=== PATIENT | female | born 1980 | race African-American/Black ===

== ENCOUNTER 2019-10-29 13:49 | Emergency (ER) | payer SELFPAY | END 2019-10-29 15:10 | disposition home or self-care (01) | LOC: NAV ERS 13:49 | DX: R10.9 Unspecified abdominal pain (principal); G89.29 Other chronic pain; E11.9 Type 2 diabetes mellitus without complications; E78.5 Hyperlipidemia, unspecified; E78.00 Pure hypercholesterolemia, unspecified; F17.220 Nicotine dependence, chewing tobacco, uncomplicated; Z79.84 Long term (current) use of oral hypoglycemic drugs; Z79.899 Other long term (current) drug therapy | CPT/HCPCS: 99281 ==

== ENCOUNTER 2022-07-13 18:32 | Emergency (ER) | payer SELFPAY ==
[2022-07-13] MEDS ORDERED: Ondansetron ODT 4 MG TAB ONE (18:57)
[2022-07-13] MEDS ORDERED: Ibuprofen 800 MG TAB ONE (18:57)
== END 2022-07-13 20:05 | disposition home or self-care (01) ==
LOC: NAV ERS 18:32
DX: B34.9 Viral infection, unspecified (principal); E11.9 Type 2 diabetes mellitus without complications; E78.00 Pure hypercholesterolemia, unspecified; F17.220 Nicotine dependence, chewing tobacco, uncomplicated; Z79.84 Long term (current) use of oral hypoglycemic drugs; Z79.899 Other long term (current) drug therapy
CPT/HCPCS: 36416; 87804; 99284; Q0162

== ENCOUNTER 2022-09-03 16:46 | Emergency (ER) | payer SELFPAY ==
[2022-09-03] MEDS ORDERED: Insulin Regular 300 UNITS/3 ML VIAL ONE (17:06)
[2022-09-03] MEDS ORDERED: Cephalexin 250 MG CAP ONE (17:10)
== END 2022-09-03 16:53 | disposition home or self-care (01) ==
LOC: NAV ERS 16:46
DX: T63.441A Toxic effect of venom of bees, accidental (unintentional), initial encounter (principal); E11.65 Type 2 diabetes mellitus with hyperglycemia; E78.00 Pure hypercholesterolemia, unspecified; F17.220 Nicotine dependence, chewing tobacco, uncomplicated; Z79.84 Long term (current) use of oral hypoglycemic drugs; Z79.899 Other long term (current) drug therapy
CPT/HCPCS: 36416; 99283; J1815

== ENCOUNTER 2022-09-20 08:19 | Emergency (ER) | payer BC, MEDICAID, SELFPAY | END 2022-09-20 09:36 | disposition home or self-care (01) | LOC: NAV ERS 08:19 | DX: H65.91 Unspecified nonsuppurative otitis media, right ear (principal); J02.9 Acute pharyngitis, unspecified; I10 Essential (primary) hypertension; Z20.822 Contact with and (suspected) exposure to COVID-19; E11.9 Type 2 diabetes mellitus without complications; E78.00 Pure hypercholesterolemia, unspecified; F17.220 Nicotine dependence, chewing tobacco, uncomplicated | CPT/HCPCS: 87081; 87430; 99283; U0003; U0005 ==

== ENCOUNTER 2022-11-26 16:51 | Emergency (ER) | payer BC, SELFPAY ==
[2022-11-26] MEDS ORDERED: Dexamethasone 4 mg/ml Vial ONE (17:23)
[2022-11-26] MEDS ORDERED: Lidocaine Viscous Sol 2% 15 ml UD Cup ONE (17:23)
[2022-11-26] MEDS ORDERED: Ketorolac Tromethamine 60 MG/2 ML VIAL ONE (17:23)
[2022-11-27 00:38] LABS: MONO NEGATIVE CONTROL ZONE White (Negative) (White); MONO POSITIVE CONTROL Pink Line (Positive) (PINK/RED); Mononucleosis NEGATIVE (NEGATIVE)
== END 2022-11-26 19:34 | disposition home or self-care (01) ==
LOC: NAV ERS 16:51
DX: J02.9 Acute pharyngitis, unspecified (principal); E11.9 Type 2 diabetes mellitus without complications; E78.00 Pure hypercholesterolemia, unspecified; F17.220 Nicotine dependence, chewing tobacco, uncomplicated; Z20.822 Contact with and (suspected) exposure to COVID-19
CPT/HCPCS: 36415; 86308; 87081; 87430; 87804; 96372; 99283; J1100; J1885; U0003; U0005

== ENCOUNTER 2023-02-26 14:13 | Emergency (ER) | payer SELFPAY ==
[2023-02-26] MEDS ORDERED: Lidocaine Viscous Sol 2% 15 ml UD Cup ONE (14:51)
[2023-02-26] MEDS ORDERED: Mag-Al Plus 1200 MG/1200 MG/120 MG/30 ML UDCUP ONE (14:51)
[2023-02-26] MEDS ORDERED: Sodium Chloride 0.9% 1,000 ML ONE (14:51)
[2023-02-26] MEDS ORDERED: Ondansetron PF 4 MG/2 ML Vial ONE (14:51)
[2023-02-26 15:30] LABS: #Basophils 0.1 thou/uL (0.0-0.2); #Eosinphils 0.3 thou/uL (0.0-0.7); #Lymphocytes 1.2 thou/uL (1.20-3.40); #Monocytes 0.5 thou/uL (0.11-0.59); %Basophils 1.3 % (0.0-1.0); %Eosinophils 5.5 % (0.0-10.0); %Lymphocytes 24.3 % (21.0-51.0); %Monocytes 9.7 % (0.0-10.0); %Neutrophils 59.2 % (42.0-75.0); Hemoglobin 10.9 g/dL (12.0-16.0); Mean Corpuscular HGB CONC 30.3 g/dL (32.0-36.0); Mean Corpuscular Hemoglobin 24.3 pg (27.0-31.0); Mean Corpuscular Volume 80.1 fl (78.0-98.0); Mean Platelet Volume 7.7 fL (7.4-10.4); Platelet Count 267 10x3/uL (130-400); RBC Distribution Width 14.6 % (11.5-14.5); Red Blood Cell (RBC) Count 4.47 mill/uL (4.20-5.40)
[2023-02-26 15:34] LABS: ALT (SGPT) 11 U/L (8-55); AST (SGOT) 13 U/L (5-34); Albumin 3.2 g/dL (3.5-5.0); Alkaline Phosphatase 97 U/L (40-110); Anion Gap 12 mmol/L (10-20); BUN (Urea Nitrogen) 15 mg/dL (7.0-18.7); Bilirubin, Total 0.2 mg/dL (0.2-1.2); Calc. Creatinine Clearance 0 mL/min (70-130); Calcium 9.7 mg/dL (7.8-10.44); Carbon Dioxide 23 mmol/L (22-29); Chloride 107 mmol/L (98-107); Estimated GFR 58; Globulin 4.3 g/dL (2.4-3.5); Glucose 162 mg/dL (70-105); Lipase 28 U/L (8-78); Potassium 4.4 mmol/L (3.5-5.1); Protein, Total 7.5 g/dL (6.0-8.3); Sodium 138 mmol/L (136-145)
[2023-02-26 16:10] LABS: Bilirubin Negative (Negative); Blood, Urine Moderate (Negative); Clarity Clear (Clear); Glucose, Urine (Dipstick) 500 mg/dL (Negative); Ketone, Urine Negative (Negative); Leukocyte Negative (Negative); Nitrite Negative (Negative); Protein, Urine (Dipstick) Trace mg/dL (Neg-Trace); Specific Gravity, Urine 1.025 (1.005-1.030)
[2023-02-26 16:21] LABS: Bacteria/HPF 2+ HPF (None Seen); CAUTI Indications for Culture < 2yrs of age; RBC/HPF 0-3 HPF (0-3); Squamous Epithelial 0-3 HPF (0-3); Urine Culture Reflex Yes Yes; WBC/HPF 0-3 HPF (0-3)
[2023-02-26] MEDS ORDERED: Promethazine HCl 25 MG/ML VIAL ONE (16:34)
[2023-02-26] MEDS ORDERED: Sodium Chloride 0.9% 100 ML ONE (16:34)
== END 2023-02-26 17:26 | disposition home or self-care (01) ==
LOC: NAV ERS 14:13
DX: R11.2 Nausea with vomiting, unspecified (principal); E11.9 Type 2 diabetes mellitus without complications; Z79.84 Long term (current) use of oral hypoglycemic drugs
CPT/HCPCS: 80053; 81001; 83690; 84484; 85025; 87077; 87086; 93005; 94760; 96361; 96365; 96375; J2405; J2550; J7050

== ENCOUNTER 2023-09-29 17:08 | Emergency (ER) | payer OTHER ==
[2023-09-29] MEDS ORDERED: Acetaminophen 500 MG TAB ONE (17:35)
== END 2023-09-29 17:53 | disposition home or self-care (01) ==
LOC: NAV ERS 17:08
DX: H60.502 Unspecified acute noninfective otitis externa, left ear (principal); E11.9 Type 2 diabetes mellitus without complications; E78.5 Hyperlipidemia, unspecified; F17.220 Nicotine dependence, chewing tobacco, uncomplicated; Z79.84 Long term (current) use of oral hypoglycemic drugs; Z79.899 Other long term (current) drug therapy
CPT/HCPCS: 99282

== ENCOUNTER 2024-02-11 14:55 | Emergency (ER) | payer OTHER | END 2024-02-11 15:30 | disposition home or self-care (01) | LOC: NAV ERS 14:55 | DX: S30.861A Insect bite (nonvenomous) of abdominal wall, initial encounter (principal); S10.96XA Insect bite of unspecified part of neck, initial encounter; S80.861A Insect bite (nonvenomous), right lower leg, initial encounter; L29.9 Pruritus, unspecified; R00.0 Tachycardia, unspecified; E11.9 Type 2 diabetes mellitus without complications; F17.220 Nicotine dependence, chewing tobacco, uncomplicated; E78.5 Hyperlipidemia, unspecified; Z79.84 Long term (current) use of oral hypoglycemic drugs; Z79.899 Other long term (current) drug therapy; W57.XXXA Bitten or stung by nonvenomous insect and other nonvenomous arthropods, initial encounter | CPT/HCPCS: 99282 ==

== ENCOUNTER 2024-03-25 18:40 | Emergency (ER) | payer OTHER ==
[2024-03-25] MEDS ORDERED: Naproxen 500 MG TAB ONE (19:05)
== END 2024-03-25 19:19 | disposition home or self-care (01) ==
LOC: NAV ERS 18:40
DX: S90.121A Contusion of right lesser toe(s) without damage to nail, initial encounter (principal); E11.9 Type 2 diabetes mellitus without complications; F17.220 Nicotine dependence, chewing tobacco, uncomplicated; E78.5 Hyperlipidemia, unspecified; Z79.899 Other long term (current) drug therapy; Z79.84 Long term (current) use of oral hypoglycemic drugs; W50.0XXA Accidental hit or strike by another person, initial encounter

== ENCOUNTER 2024-08-14 23:02 | Emergency (ER) | payer OTHER | END 2024-08-15 00:15 | disposition home or self-care (01) | LOC: NAV ERS 23:02 | DX: M25.562 Pain in left knee (principal); M25.561 Pain in right knee; E11.9 Type 2 diabetes mellitus without complications; F17.200 Nicotine dependence, unspecified, uncomplicated; Y92.129 Unspecified place in nursing home as the place of occurrence of the external cause | CPT/HCPCS: 99283 ==

== ENCOUNTER 2025-04-12 14:28 | Emergency (ER) | payer OTHER ==
[2025-04-12 15:02] LABS: #Basophils 0.2 thou/uL (0.0-0.2); #Eosinophils 0.3 thou/uL (0.0-0.7); #Lymphocytes 2.5 thou/uL (1.20-3.40); #Monocytes 0.5 thou/uL (0.11-0.59); #Neutrophils 6.8 thou/uL (1.40-6.50); %Basophils 2.2 % (0.0-1.0); %Eosinophils 3.2 % (0.0-10.0); %Lymphocytes 23.7 % (21.0-51.0); %Monocytes 5.1 % (0.0-10.0); %Neutrophils 65.7 % (42.0-75.0); Hematocrit 40.9 % (36.0-47.0); Hemoglobin 13.5 g/dL (12.0-16.0); Mean Corpuscular Hemoglobin 26.8 pg (27.0-31.0); Mean Corpuscular Volume 80.8 fl (78.0-98.0); Platelet Count 320 10x3/uL (130-400); Red Blood Cell (RBC) Count 5.06 mill/uL (4.20-5.40); White Blood Cell (WBC) Count 10.3 10x3/uL (4.8-10.8)
[2025-04-12 15:16] LABS: ALT (SGPT) 11 U/L (Less than 34); AST (SGOT) 19 U/L (11-34); Albumin 3.7 g/dL (3.1-4.5); Alkaline Phosphatase 91 U/L (40-110); Anion Gap 16 mmol/L (10-20); BUN (Urea Nitrogen) 16 mg/dL (7.0-18.7); Bilirubin, Total 0.4 mg/dL (0.3-1.2); Calc. Creatinine Clearance 0 mL/min (70-130); Calcium 9.3 mg/dL (7.8-10.44); Carbon Dioxide 22 mmol/L (22-29); Chloride 107 mmol/L (98-107); Globulin 3.9 g/dL (2.4-3.5); Glucose 104 mg/dL (70-105); Potassium 3.7 mmol/L (3.5-5.1); Sodium 141 mmol/L (136-145)
== END 2025-04-12 16:50 | disposition home or self-care (01) ==
LOC: NAV ERS 14:28
DX: E11.649 Type 2 diabetes mellitus with hypoglycemia without coma (principal); E78.5 Hyperlipidemia, unspecified; F17.220 Nicotine dependence, chewing tobacco, uncomplicated
CPT/HCPCS: 36416; 80053; 85025; 99284; 36415-59

== ENCOUNTER 2025-05-13 11:09 | Emergency (ER) | payer OTHER | END 2025-05-13 11:45 | disposition home or self-care (01) | LOC: NAV ERS 11:09 | DX: S46.911A Strain of unspecified muscle, fascia and tendon at shoulder and upper arm level, right arm, initial encounter (principal); R03.0 Elevated blood-pressure reading, without diagnosis of hypertension; E11.9 Type 2 diabetes mellitus without complications; D50.9 Iron deficiency anemia, unspecified; F17.220 Nicotine dependence, chewing tobacco, uncomplicated; Z79.84 Long term (current) use of oral hypoglycemic drugs; Z79.899 Other long term (current) drug therapy; X50.0XXA Overexertion from strenuous movement or load, initial encounter; Y93.89 Activity, other specified | CPT/HCPCS: 99283 ==

== ENCOUNTER 2025-06-24 12:10 | Emergency (ER) | payer OTHER ==
[2025-06-24] MEDS ORDERED: Acetaminophen 500 MG TAB ONE (12:51)
[2025-06-24] MEDS ORDERED: Ibuprofen 800 MG TAB ONE (12:51)
[2025-06-24] MEDS ORDERED: Naproxen 500 MG TAB ONE (12:53)
== END 2025-06-24 13:10 | disposition home or self-care (01) ==
LOC: NAV ERS 12:10
DX: J02.9 Acute pharyngitis, unspecified (principal); G89.29 Other chronic pain; M25.511 Pain in right shoulder; E11.9 Type 2 diabetes mellitus without complications; E78.5 Hyperlipidemia, unspecified; F17.220 Nicotine dependence, chewing tobacco, uncomplicated; Z79.84 Long term (current) use of oral hypoglycemic drugs; Z79.899 Other long term (current) drug therapy
CPT/HCPCS: 87081; 87430; 99283

== ENCOUNTER 2025-07-13 13:31 | Emergency (ER) | payer OTHER | END 2025-07-13 14:42 | disposition home or self-care (01) | LOC: NAV ERS 13:31 | DX: B34.9 Viral infection, unspecified (principal); E11.9 Type 2 diabetes mellitus without complications; F17.220 Nicotine dependence, chewing tobacco, uncomplicated; Z79.84 Long term (current) use of oral hypoglycemic drugs; Z79.899 Other long term (current) drug therapy | CPT/HCPCS: 87081; 87430; 99283 ==